=== PATIENT | male | born 1985 | race Hispanic/Latino ===

== ENCOUNTER 2019-10-31 11:17 | Emergency (ER) | payer SELFPAY ==
[2019-10-31] MEDS ORDERED: NA BORATE/BORIC AC/H2O/NACL 120 ML OPHTH IRRIG SOLN ONE (11:34)
[2019-10-31] MEDS ORDERED: TETRACAINE HCL 0.5% 4 ML OPHTH SOLN ONE (11:34)
[2019-10-31] MEDS ORDERED: FLUORESCEIN SODIUM 1 STRIP STRIP ONE (11:35)
== END 2019-10-31 12:25 | disposition home or self-care (01) ==
LOC: EDH 11:17
DX: S05.01XA Injury of conjunctiva and corneal abrasion without foreign body, right eye, initial encounter (principal); Z88.0 Allergy status to penicillin; X58.XXXA Exposure to other specified factors, initial encounter; Y93.89 Activity, other specified; Y92.89 Other specified places as the place of occurrence of the external cause; Y99.8 Other external cause status